=== PATIENT | female | born 1990 | race Caucasian/White ===

== ENCOUNTER → 2018-08-22 | Outpatient (CLI) | payer OTHER ==
[~2018-08-22] MED LIST: BENTYL10 MG PO; BIRTH CONTROL; CONCERTA
[2018-08-22 09:37] LABS: ABSOLUTE BASOPHILS 0.1 thou/uL (0.0-0.2); ABSOLUTE EOSINOPHILS 0.1 thou/uL (0.0-0.7); ABSOLUTE LYMPHOCYTES 1.4 thou/uL (0.8-5.3); ABSOLUTE MONOCYTES 0.6 thou/uL (0.0-1.2); ABSOLUTE NEUTROPHILS 4.6 thou/uL (1.6-8.1); BASOPHILS 1.2 %; EOSINOPHILS 0.9 %; HEMATOCRIT 44.4 % (37.0-47.0); HEMOGLOBIN 15.1 gm/dL (12.0-15.0); LYMPHOCYTES 20.5 %; MCH 31.3 pg (26.0-34.0); MCHC 34.1 g/dL (28.0-37.0); MCV 91.7 fL (80.0-100.0); MONOCYTES 9.3 %; MPV 10.7 fl. (7.2-11.1); NUCLEATED RBCS 0 /100WBC; PLATELET COUNT* 173 thou/uL (150-400); POLYS 68.1 %; RBC 4.84 mil/uL (4.20-5.00); RDW-CV 12.7 % (10.5-14.5); WBC 6.8 thou/uL (4.0-11.0)
[2018-08-22 09:49] LABS: ALBUMIN 3.8 g/dL (3.4-5.0); CALCIUM 9.2 mg/dL (8.5-10.1); CREATININE 0.8 mg/dL (0.6-1.3); POTASSIUM 4.2 mmol/L (3.5-5.1); TOTAL BILIRUBIN 0.4 mg/dL (<0.1-1.0); TOTAL PROTEIN 7.7 g/dL (6.4-8.2)
[2018-08-22 10:49] LABS: ESR (SEDRATE) 10 mm/hr (0-20)
== END ==
LOC: M.LAB 09:16
PROVIDERS: Internal Medicine
DX: L65.9 Nonscarring hair loss, unspecified (principal)

== ENCOUNTER 2020-04-21 01:25 | Emergency (ER) | payer OTHER ==
[~2020-04-21] VITALS: Ht 165.1 cm; Wt 93.9 kg
[2020-04-21] MEDS ORDERED: TORADOL 10 MG T10 MG PO (02:11)
[2020-04-21] MEDS ORDERED: PREDNISONE50 MG PO (02:11)
[2020-04-21] MEDS ORDERED: CYCLOBENZAPRINE5 MG PO (02:11)
[2020-04-21 02:39] VITALS: BP 118/70
== END 2020-04-21 02:40 | disposition home or self-care (01) ==
LOC: M.ERS 01:25
DX: M54.5 Low back pain (principal); Z88.1 Allergy status to other antibiotic agents